=== PATIENT | male | born 1990 ===

== ENCOUNTER 2021-12-05 01:10 | Inpatient (IN) | payer OTHER ==
[2021-12-05] MEDS ORDERED: Diazepam 10 MG/2 ML SYRINGE ONE (01:24)
[2021-12-05] MEDS ORDERED: Rocuronium Bromide 10 MG/ML (10ML VIAL) ONE (01:25)
[2021-12-05] MEDS ORDERED: FENTANYL 50 MCG/ML VIAL 50 MCG/ML VIAL ONE (01:41)
[2021-12-05 02:02] LABS: Anion Gap 27 mmol/L (10-20); BUN (Urea Nitrogen) 38 mg/dL (8.9-20.6); Calc. Creatinine Clearance 0 mL/min (70-130); Carbon Dioxide 11 mmol/L (22-29); Chloride 101 mmol/L (98-107); Potassium 4.5 mmol/L (3.5-5.1); Sodium 134 mmol/L (136-145)
[2021-12-05 02:03] LABS: ALT (SGPT) 14 U/L (8-55); AST (SGOT) 81 U/L (5-34); Albumin 4.5 g/dL (3.5-5.0); Alkaline Phosphatase 67 U/L (40-110); Calcium 8.8 mg/dL (7.8-10.44); Estimated GFR 23; Globulin 4.7 g/dL (2.4-3.5); Glucose 288 mg/dL (70-105); Protein, Total 9.2 g/dL (6.0-8.3)
[2021-12-05 02:10] LABS: Acetaminophen Less than 10.0 mcg/mL (10.0-30.0); Alcohol Less than 10 mg/dL (Less than 10); CK (CPK) 170 U/L (30-200); Salicylate Less than 8.0 mg/dL (15.0-30.0)
[2021-12-05 02:12] LABS: Actual Bicarbonate (HCO3a) 18.7 mEq/L (22-28); Analyzer IN Cardio ER; Base Excess (BEa) -5.3 mEq/L (-2.0 to +3.0); CO2 Tension 28.7 mmHg (35.0-45.0); Calcium, Ionized (arterial) 1.03 mmol/L (1.12-1.30); Carboxyhemoglobin (COHb) 2.3 gm% (0.0-3.0); Potassium - ABG Lab 4.12 mmol/L (3.70-5.30); pH, Arterial 7.43 (7.35-7.45)
[2021-12-05 02:14] LABS: O2 Tension (PaO2), arterial 594.5 mmHg (80.0-100.0)
[2021-12-05 02:15] LABS: ALV-art Gradient 82.625 mmHg (0-20); Hemoglobin (Hb) 4.6 g/dL (14.0-18.0); Puncture Site LBR
[2021-12-05] MEDS ORDERED: Fentanyl CADD 100 ML IV SCH ×2 (02:15→06:00)
[2021-12-05] MEDS ORDERED: Acetaminophen 325 MG Suppository ONE (02:31)
[2021-12-05 02:39] LABS: Hemoglobin 4.6 g/dL (14.0-18.0); Mean Corpuscular HGB CONC 31.2 g/dL (32.0-36.0); Mean Corpuscular Hemoglobin 21.4 pg (27.0-31.0); Mean Corpuscular Volume 68.7 fl (78.0-98.0); Platelet Count 23 thou/uL (130-400); RBC Distribution Width 37.4 % (11.5-14.5); Red Blood Cell (RBC) Count 2.16 mill/uL (4.70-6.10); Reflex for Review?? YES; White Blood Cell (WBC) Count 18.2 thou/uL (4.8-10.8)
[2021-12-05 02:40] LABS: Anisocytosis MARKED = >30 cells (100X) (0-5/hpf); Band 10 % (5-11); Lymphocytes 40 % (21-51); MDiff Complete? YES; Macrocytosis SLIGHT = 6-15 cells (100X) (0-5/hpf); Microcytosis MODERATE=15-30 cells (100X) (0-5/hpf); Monocytes 12 % (0-10); Neutrophil 38 % (42-75); Nucleated RBC 3 % (0); Platelet Morphology Comment Appears Decreased; Polychromasia MODERATE = 3-4 cells (100X) (0-2/hpf); Schistocytes MARKED= >16 cells (100X) (0-1/hpf)
[2021-12-05 02:58] LABS: Amphetamine Not Detected (NotDetected); Barbiturates Screen Not Detected (NotDetected); Benzodiazepine Screen Not Detected (NotDetected); Cocaine Metabolite Screen Not Detected (NotDetected); Methadone Not Detected (NotDetected); Methamphetamine Not Detected (NotDetected); Opiate Screen Not Detected (NotDetected); Oxycodone Screen Not Detected (NotDetected); Phencyclidine (PCP) Not Detected (NotDetected); THC/Cannabinoid Screen Not Detected (NotDetected); Tricyclic Screen Not Detected (NotDetected)
[2021-12-05] MEDS ORDERED: Propofol 1,000 MG/100 ML VIAL IV ONE (03:01)
[2021-12-05 03:31] LABS: Bacteria/HPF 1+ HPF (None Seen); Bilirubin Negative (Negative); Blood, Urine 3+ (Negative); Clarity Turbid (Clear); Glucose, Urine (Dipstick) Normal (Negative); Ketone, Urine Negative (Negative); Leukocyte Negative Leu/uL (Negative); Nitrite Negative (Negative); Protein, Urine (Dipstick) 300 mg/dL (Neg-Trace); Specific Gravity, Urine 1.022 (1.002-1.036); Squamous Epithelial 0-3 HPF (0-3); Urobilinogen Normal mg/dL (Less than 2)
[2021-12-05] MEDS ORDERED: Vancomycin 1 GM/200 ML BAG ONE (04:16)
[2021-12-05] MEDS ORDERED: Cefepime 2 GM VIAL ONE (04:16)
[2021-12-05] MEDS ORDERED: Sodium Chloride 0.9% 1,000 ML IV SCH (04:30)
[2021-12-05] MEDS ORDERED: Ondansetron PF 4 MG/2 ML Vial IVP PRN (05:22)
[2021-12-05] MEDS ORDERED: Acetaminophen 325 MG Suppository PR PRN (05:22)
[2021-12-05] MEDS ORDERED: Ondansetron ODT 4 MG TAB PO PRN (05:22)
[2021-12-05] MEDS ORDERED: Acetaminophen 325 MG TAB PO PRN (05:22)
[2021-12-05] MEDS ORDERED: Acetaminophen 325 MG/10.15 ML UDCUP PO PRN (05:24)
[2021-12-05] MEDS ORDERED: Electrolyte Replacement Protocol 1 EACH IVPB PRN (05:24)
[2021-12-05] MEDS ORDERED: Ventilator Sedation Protocol 1 EACH FS SCH (05:30)
[2021-12-05] MEDS ORDERED: Midazolam HCl 2 mg/2 ml Vial SLOW IVP PRN (05:54)
[2021-12-05] MEDS ORDERED: Lactated Ringer's 500 ML IV SCH (06:00)
[2021-12-05] MEDS ORDERED: Morphine 4 MG/ML VIAL SLOW IVP PRN (06:00)
[2021-12-05] MEDS ORDERED: DISCONTINUE PREVIOUS NARCOTIC PAIN MEDICATIONS AND BENZODIAZEPINES FS SCH (06:00)
[2021-12-05] MEDS ORDERED: Propofol BOLUS 1,000 MG/100 ML VIAL IV PRN (06:00)
[2021-12-05] MEDS ORDERED: Fentanyl BOLUS 250 ML IVPB PRN (06:00)
[2021-12-05 06:11] LABS: Creatinine, Urine 237.09 mg/dL (63-166)
[2021-12-05] MEDS ORDERED: Lorazepam 2 MG/ML VIAL SLOW IVP PRN (06:23)
[2021-12-05] MEDS ORDERED: Vancomycin 1 GM in Premix Bag 1 BAG IVPB SCH (06:30)
[2021-12-05] MEDS: Lactated Ringer's 1,000 ML IV SCH ×2 (07:34→07:39)
[2021-12-05] MEDS ORDERED: methylPREDNISolone Sod Succ/PF 125 MG/2 ML VIAL IVP SCH (07:45)
[2021-12-05 07:54] LABS: Fibrinogen 276 mg/dL (253-463); INR-International Normal Ratio 1.6; Prothrombin Time 19.3 sec (12.0-14.7)
[2021-12-05 07:58] LABS: Reticulocyte Count 10.3 % (0.5-1.5)
[2021-12-05 07:59] VITALS: BMI 28.6
[2021-12-05] MEDS ORDERED: hydrALAZINE 20 MG/ML VIAL SLOW IVP PRN (08:02)
[2021-12-05 08:10] LABS: PTT 27.8 sec (22.9-36.1)
[2021-12-05 08:14] LABS: D-Dimer Test Greater than 20.00 *mcg/mL (0.27-0.43)
[2021-12-05 08:26] LABS: Bilirubin, Direct 0.6 mg/dL (0.1-0.3); Bilirubin, Total 1.9 mg/dL (0.2-1.2); HBCM Index 0.07 S/CO (0-0.79); HBSAg Index 0.32 S/CO (0-0.99); HIV (1/2) Antibody/Antigen Non-Reactive (NonReactive); HIV 1/2 INDEX 0.18 S/CO (<1.00); Hep B Surf Ag Non-Reactive S/CO (NonReactive); Hep C IgG Ab Non-Reactive (NonReactive); Hep C Index 0.12 S/CO (0-0.79); Hepatitis B Core IgM Abs Non-Reactive (NonReactive)
[2021-12-05 08:32] LABS: HBSAB Concentration 366.12 mIU/mL; Hep B Surf AB Reactive (NonReactive)
[2021-12-05 08:38] LABS: Cardiac Risk 8.5 (Less than 4.5); Cholesterol 145 mg/dl (< 200 Desired); HDL Cholesterol 17 mg/dL (>60 Neg Risk); LDL Cholesterol, Calculated 91 mg/dL; Magnesium 1.6 mg/dL (1.6-2.6); Triglycerides 187 mg/dL (Less than 150)
[2021-12-05] MEDS ORDERED: levETIRAcetam 500 MG/5 ML VIAL SLOW IVP SCH (09:00)
[2021-12-05] MEDS ORDERED: Pantoprazole 40 MG VIAL IVP SCH (09:00)
[2021-12-05] MEDS ORDERED: cefTRIAXone\\ROCEPHIN 2 GM in Sodium Chloride 0.9% 100 ML IVPB SCH (09:00)
[2021-12-05] MEDS ORDERED: levETIRAcetam in NS 1,000 MG in Premix Bag 1 BAG IVPB SCH (09:00)
[2021-12-05 09:52] LABS: Hemoglobin A1c 3.9 % (4.0-6.0)
[2021-12-05 10:03] LABS: CKMB 4.6 ng/mL (0-6.6)
[2021-12-05 11:05] LABS: Hemoglobin 4.9 g/dL (14.0-18.0); Mean Corpuscular HGB CONC 32.9 g/dL (32.0-36.0); Mean Corpuscular Hemoglobin 24.2 pg (27.0-31.0); Mean Corpuscular Volume 73.6 fl (78.0-98.0); Platelet Count 12 thou/uL (130-400); Red Blood Cell (RBC) Count 2.01 mill/uL (4.70-6.10)
[2021-12-05] MEDS: Propofol 1,000 MG/100 ML VIAL IV PRN ×2 (11:05→16:42)
[2021-12-05 11:22] LABS: Lactic Acid 2.6 mmol/L (0.5-2.2)
[2021-12-05 11:23] LABS: Anisocytosis MARKED = >30 cells (100X) (0-5/hpf); Band 18 % (5-11); Hypochromia SLIGHT = 6-15 cells (100X) (0-5/hpf); Lymphocytes 26 % (21-51); MDiff Complete? YES; Metamyelocyte 4 % (0-0); Microcytosis SLIGHT = 6-15 cells (100X) (0-5/hpf); Monocytes 1 % (0-10); Myelocyte 2 % (0-0); Neutrophil 48 % (42-75); Nucleated RBC 14 % (0); Ovalocytes SLIGHT = 2-5 cells (100X) (0-1/hpf); Platelet Morphology Comment Appears Decreased; Poikilocytosis MODERATE=16-30 cells (100X) (0-5/hpf); Polychromasia MODERATE = 3-4 cells (100X) (0-2/hpf); Schistocytes MARKED= >16 cells (100X) (0-1/hpf); Spherocytes SLIGHT = 1-5 cells (100X) (None Seen); Tear Drops SLIGHT = 2-5 cells (100X) (0-1/hpf); White Blood Cell (WBC) Count 10.5 thou/uL (4.8-10.8)
[2021-12-05 11:31] LABS: Syphilis Antibody Nonreactive (Nonreactive); Syphilis Antibody Index 0.06 S/CO (<1.00 Non-Reactive)
[2021-12-05] MEDS ORDERED: Cefepime 2 GM in Sodium Chloride 0.9% 100 ML IVPB SCH ×2 (14:00→16:00)
[2021-12-05 14:09] LABS: Critical Call Chem Troponin I RESULT DECREASING; Troponin I 2.965 ng/mL (< 0.028)
[2021-12-05] MEDS ORDERED: FLU VACC QS2022-23(6MOS UP)/PF 60 MCG/0.5 ML SYRINGE IM ONE (16:00)
[2021-12-05 16:20] VITALS: TEMP 102.7
[2021-12-05 16:33] VITALS: BP 109/72
[2021-12-06] MEDS ORDERED: VANCOMYCIN 1.25 GM/250 ML BAG 1.25 GM in Premix Bag 1 BAG IVPB SCH (08:00)
[2021-12-06] MEDS ORDERED: methylPREDNISolone Sod Succ/PF 125 MG/2 ML VIAL IVP SCH ×2 (09:00)
[2021-12-06 11:20] LABS: Reference Lab Name LABCORP
[2021-12-06 11:21] LABS: Ref Lab Test Ordered ADAMTS 13 ACTIVITY
[2021-12-06 11:40] LABS: Reference Lab Name LABCORP
[2021-12-06 11:41] LABS: Ref Lab Test Ordered ADAMTS13 ABS
[2021-12-06 14:07] LABS: ANA Symphony (Qualitative) POSITIVE (Negative); ANA Symphony (Quantitative) 1.8 Ratio (< 0.7 Negative); CENP IgG Antibody 0.8 EliAU/mL (<7 Negative); EliA APS New Method **** NEW METHOD ****; Jo-1 IgG Antibody 0.5 EliAU/mL (<7 Negative); Mitochondrial Ab 4.1 U/mL (<4 Negative); RNP70 IgG Antibody 0.9 EliAU/mL (<7 Negative); SSA/Ro IgG Antibody 3.3 EliAU/mL (<7 Negative); SSB/La IgG Antibody 0.6 EliAU/mL (<7 Negative); Scleroderma-70 IgG Antibody 1.2 EliAU/mL (<7 Negative); Smith D IgG Antibody 3.2 EliAU/mL (<7 Negative)
[2021-12-10 21:37] LABS: HSV 1 - DNA Negative (Negative); HSV 2 - DNA Negative (Negative)
== END 2021-12-05 16:55 | disposition short-term general hospital (02) | DRG 871 ==
LOC: ERS 01:10 → EEVIPCON 04:12 → CCU 04:12
PROVIDERS: ADMIT Student in an Organized Health Care Education/Training Program; ATTEND Student in an Organized Health Care Education/Training Program
PROC: 5A1935Z Respiratory Ventilation, Less than 24 Consecutive Hours (ICD-10-PCS; principal; 2021-12-05)
PROC: 0BH18EZ Insertion of Endotracheal Airway into Trachea, Via Natural or Artificial Opening Endoscopic (ICD-10-PCS; 2021-12-05)
PROC: 30233N1 Transfusion of Nonautologous Red Blood Cells into Peripheral Vein, Percutaneous Approach (ICD-10-PCS; 2021-12-05)
PROC: 0D9670Z Drainage of Stomach with Drainage Device, Via Natural or Artificial Opening (ICD-10-PCS; 2021-12-05)
PROC: 4A10X4Z Monitoring of Central Nervous Electrical Activity, External Approach (ICD-10-PCS; 2021-12-05)
DX: A41.9 Sepsis, unspecified organism (principal); G03.9 Meningitis, unspecified; J96.01 Acute respiratory failure with hypoxia; R65.21 Severe sepsis with septic shock; M31.19 Other thrombotic microangiopathy; E87.20 Acidosis, unspecified; D58.9 Hereditary hemolytic anemia, unspecified; N17.9 Acute kidney failure, unspecified; I10 Essential (primary) hypertension; R56.9 Unspecified convulsions; R74.01 Elevation of levels of liver transaminase levels; E03.9 Hypothyroidism, unspecified; Z20.822 Contact with and (suspected) exposure to COVID-19; Z79.899 Other long term (current) drug therapy; Z78.1 Physical restraint status; Z86.73 Personal history of transient ischemic attack (TIA), and cerebral infarction without residual deficits
CPT/HCPCS: 31500; 36415; 36416; 36430; 51702; 70450; 71045; 72125; 80053; 80061; 80306; 80307; 81003; 81015; 82247; 82550; 82553; 82570; 82805; 83010; 83036; 83516; 83605; 83615; 83735; 84146; 84300; 84443; 84484; 85025; 85046; 85060; 85379; 85384; 85610; 85730; 86038; 86147; 86160; 86225; 86235; 86376; 86705; 86706; 86780; 86803; 86850; 86900; 86901; 87040; 87340; 87389; 87529; 87631; 93005; 93010; 93306; 94002; 94760; 95816; 95819; 95957; 96365; 96366; 96368; 96376; C9113; J0692; J1953; J2704; J2930; J3010; J3360; J3370; J7050; J7120; P9016; P9040; U0003; U0005